=== PATIENT | male | born 1960 | race Caucasian/White ===

== ENCOUNTER 2019-02-12 14:00 | Inpatient (IN) | payer OTHER ==
[~2019-02-12] VITALS: Ht 195.6 cm; Wt 113.4 kg
[2019-02-12] MEDS ORDERED: ONDANSETRON HCL 4MG/2ML INJ IV STA (14:31)
[2019-02-12] MEDS ORDERED: SODIUM CHLORIDE 0.9% 1,000 ML IV ONE (14:31)
[2019-02-12] MEDS ORDERED: MORPHINE SULFATE 4 MG/ML CPJ (NOT FOR IM USE) IV STA (14:31)
[2019-02-12 15:24] LABS: BASOPHILS % 0.3 % (0.0-2.0); HEMATOCRIT. 40.4 % (42.0-52.0); HEMOGLOBIN. 14.1 g/dL (14.0-18.0); LYMPHOCYTES % 9.6 % (20.0-50.0); MEAN CORPUSCULAR HEMOGLOBIN 31.5 pg (28.0-32.0); MEAN CORPUSCULAR VOLUME 90.4 fL (80.0-94.0); MEAN PLATELET VOLUME 7.2 fl (7.4-10.4); MONOCYTES % 3.2 % (2.0-8.0); NEUTROPHILS % 86.9 % (40.0-76.0); PLATELET 167 x1000/uL (130-400); RED BLOOD CELL COUNT 4.47 mill/uL (4.7-6.1); RED CELL DISTRIBUTION WIDTH 12.7 % (11.6-14.6)
[2019-02-12 15:25] LABS: CHLORIDE 108 mEq/L (98-107)
[2019-02-12 15:29] LABS: ETHANOL BLOOD 93 mg/dL
[2019-02-12 15:30] LABS: D-DIMER 0.41 mg/L FEU (<0.50); INR 1.1; PROTHROMBIN TIME 11.2 sec (9.6-11.0)
[2019-02-12] MEDS ORDERED: ASPIRIN 325MG EC TABLET PO ONE (16:45)
[2019-02-12] MEDS ORDERED: LORAZEPAM 2MG/ML CPJ IV ONE (17:45)
[2019-02-12] MEDS ORDERED: CLONIDINE 0.1MG TABLET PO PRN (19:30)
[2019-02-12] MEDS ORDERED: NITROGLYCERIN 0.4MG TABLET SL SL PRN (19:30)
[2019-02-12] MEDS ORDERED: IPRATROPIUM/ALBUTEROL 0.5-3(2.5)MG/3ML NEB HHN PRN (19:30)
[2019-02-12] MEDS ORDERED: MAGNESIUM/ALUMINUM HYDROXIDE/SIMETHICONE 30ML UDC PO PRN (19:30)
[2019-02-12] MEDS ORDERED: DOCUSATE SODIUM 100MG CAPSULE PO PRN (19:30)
[2019-02-12] MEDS ORDERED: ONDANSETRON HCL 4MG/2ML INJ IV PRN (19:30)
[2019-02-12] MEDS ORDERED: ZOLPIDEM TARTRATE 5MG TABLET PO PRN (19:30)
[2019-02-12] MEDS ORDERED: MORPHINE SULFATE 2 MG/ML CPJ (NOT FOR IM USE) IV PRN (20:02)
[2019-02-12] MEDS ORDERED: ACETAMINOPHEN 325MG TABLET PO PRN (20:02)
[2019-02-12 20:40] LABS: FOLIC ACID (FOLATE) SERUM 5.4 ng/mL (>5.38)
[2019-02-12] MEDS: LORAZEPAM 2MG/ML CPJ IV PRN (22:06)
[2019-02-12] MEDS: ACETAMINOPHEN 325MG TABLET PO PRN (22:07)
[2019-02-12] MEDS: TRAMADOL 50MG TABLET PO PRN (22:07)
[2019-02-12 23:01] LABS: CREATINE KINASE MB FRACTION 3.6 ng/mL (0.5-3.6)
[2019-02-13] MEDS ORDERED: FAMOTIDINE 20MG TABLET PO NR (01:30)
[2019-02-13] MEDS ORDERED: ZOLPIDEM TARTRATE 5MG TABLET PO PRN ×2 (01:30→21:00)
[2019-02-13] MEDS ORDERED: MVI, ADULT NO.1 10 ML, FOLIC ACID 1 MG, THIAMINE HCL 100 MG in SODIUM CHLORIDE 0.9% 1,0... IV SCH ×4 (01:30)
[2019-02-13] MEDS: MORPHINE SULFATE 2 MG/ML CPJ (NOT FOR IM USE) IV PRN ×2 (01:32→08:36)
[2019-02-13 06:49] LABS: CREATINE KINASE MB FRACTION 3.2 ng/mL (0.5-3.6)
[2019-02-13] MEDS: LORAZEPAM 2MG/ML CPJ IV PRN (07:40)
[2019-02-13] MEDS: ACETAMINOPHEN 325MG TABLET PO PRN (07:40)
[2019-02-13 09:00] VITALS: BP 170/100
[2019-02-13] MEDS ORDERED: METOPROLOL TARTRATE 25MG TABLET PO SCH (09:00)
[2019-02-13] MEDS ORDERED: ASPIRIN 81MG EC TABLET PO SCH (09:00)
[2019-02-13] MEDS ORDERED: ENOXAPARIN 40MG/0.4ML SYR SUBCUT SCH (09:00)
[2019-02-13] MEDS ORDERED: FAMOTIDINE 20MG TABLET PO SCH (09:00)
[2019-02-13 11:29] VITALS: BP 145/88
[2019-02-13 12:02] VITALS: BP 145/88
[2019-02-13] MEDS: TRAMADOL 50MG TABLET PO PRN (12:02)
[2019-02-13] MEDS ORDERED: SUCRALFATE 1 G/10 ML UDC PO SCH (12:10)
== END 2019-02-13 14:14 | disposition home or self-care (01) | DRG 392 ==
LOC: ER 14:00 → 8WST 17:44 → SUPCPDRO 19:29 → ENRESERV 02-13 07:37
PROVIDERS: ADMIT Internal Medicine; ATTEND Internal Medicine
DX: K29.20 Alcoholic gastritis without bleeding (principal); R07.89 Other chest pain; I10 Essential (primary) hypertension; F41.9 Anxiety disorder, unspecified; F32.9 Major depressive disorder, single episode, unspecified; I25.10 Atherosclerotic heart disease of native coronary artery without angina pectoris; F10.10 Alcohol abuse, uncomplicated; E83.51 Hypocalcemia; Z96.642 Presence of left artificial hip joint; K57.30 Diverticulosis of large intestine without perforation or abscess without bleeding; K76.0 Fatty (change of) liver, not elsewhere classified; I25.2 Old myocardial infarction; Z86.73 Personal history of transient ischemic attack (TIA), and cerebral infarction without residual deficits; Z95.5 Presence of coronary angioplasty implant and graft
CPT/HCPCS: 36415; 71045; 74176; 80061; 80320; 82550; 82553; 82607; 82746; 83036; 83540; 83550; 83880; 84484; 85379; 93005; 93306; 93970; 99285; J1650; J2060; J2270; J2405; J3411; J3490; J7030; G0480